=== PATIENT | male | born 1985 | race Caucasian/White ===

== ENCOUNTER 2023-07-31 13:47 | Emergency (ER) | payer OTHER ==
[2023-07-31 14:16] LABS: BASOPHILS # (AUTO) 0.1 10^3/uL (0.0-0.1); EOSINOPHILS # (AUTO) 0.2 10^3/uL (0.0-0.7); EOSINOPHILS % (AUTO) 1.8 %; HCT - HEMATOCRIT 46.9 % (42.0-52.0); HGB - HEMOGLOBIN 15.6 g/dL (14.0-18.0); LYMPHOCYTES # (AUTO) 3.3 10^3/uL (1.5-3.5); LYMPHOCYTES % (AUTO) 25.3 %; MEAN CORPUSCULAR HEMOGLOBIN 29.6 pg (27.0-31.0); MEAN CORPUSCULAR HGB CONC 33.3 g/dL (32.0-36.0); MONOCYTES # (AUTO) 0.9 10^3/uL (0.0-1.0); MONOCYTES % (AUTO) 6.7 %; NEUTROPHILS # (AUTO) 8.4 10^3/uL (1.5-6.6); NEUTROPHILS % (AUTO) 64.7 %; PLT - PLATELET COUNT 230 10^3/uL (130-450); RED BLOOD COUNT 5.27 10^6/uL (4.70-6.10); RED CELL DISTRIBUTION WIDTH 13.2 % (12.0-15.0)
[2023-07-31 14:28] VITALS: BP 130/80; O2SAT 100
[2023-07-31 14:30] LABS: ALBUMIN 4.8 g/dL (3.2-5.5); BILIRUBIN,TOTAL 0.4 mg/dL (0.2-1.0); CALCIUM 9.9 mg/dL (8.5-10.3); CREATININE 0.7 mg/dL (0.6-1.3); POTASSIUM 3.9 mmol/L (3.5-4.5); TOTAL PROTEIN 7.2 g/dL (6.4-8.9)
== END 2023-07-31 17:35 | disposition left against medical advice (07) ==
LOC: ED 13:47
DX: Z53.21 Procedure and treatment not carried out due to patient leaving prior to being seen by health care provider (principal)
CPT/HCPCS: 36415; 80053; 83690; 85025

== ENCOUNTER 2023-11-15 22:36 | Emergency (ER) | payer OTHER ==
--- NOTE | 2023-11-15 22:36 | ED Physician Documentation ---
PD HPI MALE - Stated complaint Stated Complaint: /L FLANK PX - History obtained from History obtained from: Patient, EMS - Additional information Additional information: BIBA. HPI from patient, EMS. Patient complains of rapid onset of left testicular pain at approximately 9 PM tonight while at home was seated in front of his computer. The pain radiates upwards towards his left flank and is associated with nausea and vomiting. Pain waxes and wanes without apparent exacerbating factors. He did have significant improvement en route with IV Zofran and Fentanyl. Patient says he has had one previous episode in the past of testicular pain; it is not clear if he had any diagnostic studies at that time, but was told the cause might be related to clips that were placed when he had a vasectomy undertaken in the past. He has had similar flank pain in the past, and these were attributed to renal colic (which was diagnosed with testing) Review of Systems Cardiac: reports: Reviewed and negative Respiratory: reports: Reviewed and negative GI: reports: Nausea, Vomiting. denies: Abdominal Pain : reports: Testicular pain. denies: Dysuria, Frequency, Hematuria PD PAST MEDICAL HISTORY - Past Medical History Past Medical History: Yes : Kidney stones - Present Medications Home Medications: Ambulatory Orders Medication Instructions Recorded Confirmed Pantoprazole Sodium [Protonix] 1 tab PO DAILY 11/15/23 11/15/23 Ondansetron Odt [Zofran] 4 mg TL Q6H PRN #10 tablet 11/16/23 Oxycodone HCl/Acetaminophen 1 - 2 each PO Q6H PRN #14 tablet 11/16/23 [Percocet 5-325 mg Tablet] - Allergies Allergies/Adverse Reactions: Allergies Allergy/AdvReac Type Severity Reaction Status Date / Time No Known Drug Allergies Allergy Verified 11/15/23 22:46 PD ED PE NORMAL - Vitals Vital signs reviewed: Yes - General General: Alert and oriented X 3, No acute distress, Well developed/nourished - Cardiac Cardiac: RRR, No murmur - Respiratory Respiratory: No respiratory distress, Clear bilaterally - Abdomen Abdomen: Soft, Non tender, Non distended - Back Back: No CVA TTP - Derm Derm: Normal color, Warm and dry PD ED PE EXPANDED - Male Male : Normal Exam, Testes descended anny, Normal lie/cremastaric. No: Tenderness Results - Vitals Vitals: Vital Signs - 24 hr 11/15/23 11/16/23 22:42 01:22 Temperature 36.6 C Heart Rate 89 84 Respiratory 20 16 Rate Blood Pressure 143/95 H 117/89 H O2 Saturation 95 99 Oxygen O2 Source Room air - Labs Labs: Laboratory Tests 11/15/23 11/15/23 11/15/23 22:30 22:30 23:11 WBC 12.5 H RBC 4.81 Hgb 14.1 Hct 42.0 MCV 87.3 MCH 29.3 MCHC 33.6 RDW 13.1 Plt Count 220 MPV 10.1 Neut # (Auto) Not Reportable Lymph # (Auto) Not Reportable [place] # (Auto) Not Reportable Eos # (Auto) Not Reportable Baso # (Auto) Not Reportable Absolute Nucleated RBC Not Reportable Total Counted 100 Band Neuts % (Manual) 0 Abnorm Lymph % (Manual) 7 Nucleated RBC % Not Reportable Neutrophils # (Manual) 4.5 Lymphocytes # (Manual) 6.0 H Monocytes # (Manual) 1.0 Eosinophils # (Manual) 1.0 H Basophils # (Manual) 0.0 Differential Comment MANUAL DIFFERENTIAL WBC Morphology 1+ SMUDGE CELLS Platelet Estimate NORMAL (130-450,000) Platelet Morphology NORMAL APPEARANCE RBC Morph Micro Appear NORMAL APPEARANCE Sodium 138 Potassium 3.8 Chloride 103 Carbon Dioxide 27 Anion Gap 8.0 BUN 14 Creatinine 1.0 Estimated GFR (MDRD) 83 L Glucose 137 H Calcium 10.3 Total Bilirubin 0.3 AST 18 ALT 40 Alkaline Phosphatase 88 Total Protein 7.2 Albumin 4.7 Globulin 2.5 Albumin/Globulin Ratio 1.9 Lipase 29 Urine Color BROWN Urine Clarity TURBID Urine pH 8.0 H Ur Specific [place] 1.015 Urine Protein 30 H Urine Glucose (UA) NEGATIVE Urine Ketones NEGATIVE Urine Occult Blood LARGE H Urine Nitrite NEGATIVE Urine Bilirubin NEGATIVE Urine Urobilinogen 0.2 (NORMAL) Ur Leukocyte Esterase NEGATIVE Urine RBC TNTC H Urine WBC 0-3 Ur Squamous Epith Cells NONE SEEN Amorphous Sediment Moderate Urine Bacteria Rare Ur Microscopic Review INDICATED Urine Culture Comments NOT INDICATED - Rads (name of study) testicular US with doppler Relevant Findings:: Prelim report reviewed, See rad report CT A/P without contrast Relevant Findings:: Prelim report reviewed, See rad report PD Medical Decision Making - ED course Complexity details: reviewed results, re-evaluated patient, considered differential, d/w patient ED course: Shortly after my H+P, patient had recurrence of severe left testicle and left flank pain, given 1mg IV dilaudid, 30mg IV toradol. No concerning findings on testicular ultrasound; there is normal blood flow to the left testicle and normal epididymis. A small left varicocele is noted which is an incidental finding. Mild leukocytosis on CBC (WBC 12.5). ER abdominal panel is unremarkable; mild hyperglycemia is an incidental finding (137). Urinalysis has TNTC RBC/hpf, but no other abnormalities including no WBC nor nitrites. CT of the abdomen and pelvis without contrast demonstrates a 7 mm left ureteral calculus with proximal left hydroureter and mild hydronephrosis. Results discussed with patient, return precautions reviewed. He is provided with a take-home pack of ondansetron as well as Percocet. I have electronically prescribed both these medications to his pharmacy of choice. Just prior to being discharged, patient had a recurrence of his pain and thus was given another 1 mg IV Dilaudid. This again achieved rapid and complete relief of his pain. I advised him to contact his PCP for reevaluation and possible referral to urology. Note that patient was not given Flomax nor prescription for Flomax, as he says he has plenty of this prescription still left from his most recent incident involving kidney stone (which was just a few months ago). I advised him to take a dose of the Flomax as soon as he gets home, and to take the Flomax once per day for 10 days. Departure - Departure Disposition: 01 Home, Self Care Clinical Impression: Renal colic on left side Condition: Good Instructions: ED Stone Renal W Colic Prescriptions: Oxycodone HCl/Acetaminophen [Percocet 5-325 mg Tablet] 1 - 2 each PO Q6H PRN #14 tablet PRN Reason: pain Ondansetron Odt [Zofran] 4 mg TL Q6H PRN #10 tablet PRN Reason: Nausea / Vomiting Comments: There were no concerning findings on your blood tests. The urinalysis did reveal blood in the urine but no evidence of urinary tract infection; blood in the urine is typical with renal colic (kidney stones causing symptoms). The CT scan confirms that you have a left-sided kidney stone lodged in your ureter (the conduit from the kidney to the bladder; kidney stones cause symptoms when they get stuck in the ureter as yours has). As we discussed, you should take a dose of your Flomax as soon as you get home, and then once per day for the next 10 days. I have electronically submitted prescriptions for Percocet (narcotic/opiate pain medication) and ondansetron (antinausea medication) to the [facility] pharmacy in [place]. Follow-up with your urologist, next available appointment, for reevaluation. I am prescribing a short course of narcotic pain medication for you. These are potentially dangerous and addictive medications that should be used carefully. These medications may constipate you. Take an uocf-ife-wdnrclq stool softener (docusate) twice daily with plenty of water while taking these medications. If you go 24 hours without a bowel movement, take aorq-mia-fjwebyx miralax, per package instructions. Do not drink or drive while taking these medications. If you received narcotic or sedating medications while in the emergency department, do not drive for 24 hours. Store this medication in a safe, secure place and out of reach of children. It is a violation of federal law to give or sell this medication to another person or to use in a manner other than prescribed. The ED will not refill narcotic prescriptions, including prescriptions lost or stolen. To dispose of unwanted medications: 1. [facility] at [address] in [place] has a medication drop box. They accept prescription medications (in pill form) Monday through Monday 9:00 a.m. to 5:00 p.m. 2. The [facility] accepts prescription medications (in pill form only) for disposal year round. Call for more information. 3. Contact the [facility] for the next [facility] sponsored prescription drug collection event. , [phone], or [phone]; Forms: PCP List Discharge Date/Time: 11/16/23 01:25
[2023-11-15 22:43] LABS: EOSINOPHILS % (AUTO) 3.4 %; HGB - HEMOGLOBIN 14.1 g/dL (14.0-18.0); LYMPHOCYTES % (AUTO) 44.5 %; MEAN CORPUSCULAR HEMOGLOBIN 29.3 pg (27.0-31.0); MEAN CORPUSCULAR HGB CONC 33.6 g/dL (32.0-36.0); MEAN CORPUSCULAR VOLUME 87.3 fL (80.0-94.0); MEAN PLATELET VOLUME 10.1 fL (7.4-11.4); MONOCYTES % (AUTO) 9.1 %; NEUTROPHILS % (AUTO) 41.7 %; PLT - PLATELET COUNT 220 10^3/uL (130-450); RED BLOOD COUNT 4.81 10^6/uL (4.70-6.10); RED CELL DISTRIBUTION WIDTH 13.1 % (12.0-15.0); WHITE BLOOD COUNT 12.5 x10^3/uL (4.8-10.8)
[2023-11-15 22:51] LABS: BAND NEUTROPHILS % (MANUAL) 0 %
[2023-11-15] MEDS ORDERED: HYDROmorphone 1 MG/ML CARPUJECT ONE (22:59)
[2023-11-15] MEDS ORDERED: KETOROLAC 30 MG/ML VIAL ONE (22:59)
[2023-11-15] MEDS: KETOROLAC 30 MG/ML VIAL IVP STA (23:00)
[2023-11-15] MEDS: HYDROmorphone 1 MG/ML CARPUJECT IVP STA (23:00)
[2023-11-15 23:02] LABS: ALBUMIN 4.7 g/dL (3.2-5.5); ALBUMIN/GLOBULIN RATIO 1.9 (1.0-2.2); BILIRUBIN,TOTAL 0.3 mg/dL (0.2-1.0); CALCIUM 10.3 mg/dL (8.5-10.3); POTASSIUM 3.8 mmol/L (3.5-4.5); TOTAL PROTEIN 7.2 g/dL (6.4-8.9)
[2023-11-15 23:10] LABS: ABNORMAL LYMPHS % (MANUAL) 7 %; LYMPHOCYTES % (MANUAL) 41 %; NEUTROPHILS # (MANUAL) 4.5 10^3/uL (1.5-6.6)
[2023-11-15 23:11] LABS: DIFFERENTIAL COMMENT MANUAL DIFFERENTIAL; PLATELET ESTIMATE, MANUAL NORMAL (130-450,000) (NORMAL); PLATELET MORPHOLOGY NORMAL APPEARANCE (NORMAL); RBC MORPHOLOGY (MULTIPLE) NORMAL APPEARANCE (NORMAL); WBC MORPHOLOGY (MULTIPLE) 1+ SMUDGE CELLS (NORMAL)
[2023-11-15 23:37] LABS: BILIRUBIN,URINE NEGATIVE (NEGATIVE); GLUCOSE, URINE (UA) NEGATIVE (NEGATIVE); KETONES,URINE (UA) NEGATIVE (NEGATIVE); LEUKOCYTE ESTERASE, URINE NEGATIVE (NEGATIVE); NITRITE,URINE NEGATIVE (NEGATIVE); OCCULT BLOOD,URINE LARGE (NEGATIVE); PROTEIN,URINE 30 mg/dL (NEGATIVE); UROBILINOGEN,URINE 0.2 (NORMAL) E.U./dL (NORMAL)
[2023-11-15 23:41] LABS: CLARITY,URINE TURBID (CLEAR)
[2023-11-15 23:42] LABS: AMORPHOUS SEDIMENT,UR Moderate /LPF; BACTERIA,URINE Rare /HPF (None Seen); RBC,URINE TNTC /HPF (0-5); SQUAMOUS EPITHELIAL CELL,UR NONE SEEN (<= Few); WBC,URINE 0-3 /HPF (0-3)
--- NOTE | 2023-11-16 01:02 | Ultrasound Report ---
PROCEDURE: Testicle w/Doppler INDICATIONS: left testicular pain TECHNIQUE: Real-time scanning was performed of the scrotum and testicles, with image documentation. Color and p ulse Doppler interrogation was performed of both testicles. COMPARISON: None. FINDINGS: Right: Testicle is normal in size at 3.6 x 2.0 x 2.8 cm, and homogenous in echotexture. Epididymis is normal in overall size and morphology. No hydrocele. No varicoceles. Overlying scrotal skin is n ormal in thickness. Left: Testicle is normal in size at 3.5 x 1.7 x 3.1 cm. there is an incidental 3 mm coarse calcifica tion within the testicle. The echotexture is otherwise homogeneous. Epididymis is normal in overall s ize and morphology. No hydrocele. Small varicoceles. Overlying scrotal skin is normal in thickness. Doppler: Color and pulse Doppler demonstrate normal and symmetric arterial flow in both testicles. IMPRESSION: Normal left testicular morphology and blood flow. Normal epididymides. Small left varicocele. Reviewed by: Briana Marie MD on 11/16/2023 1:00 AM PDT Approved by: Briana Marie MD on 11/16/2023 1:00 AM PDT Station ID: [id number]
--- NOTE | 2023-11-16 01:06 | CT Report ---
PROCEDURE: Abdomen/Pelvis WO INDICATIONS: left flank pain, hematuria TECHNIQUE: A CT scan of the abdomen and pelvis was performed without the use of intravenous contrast. Images we re recorded and evaluated at appropriate window settings. Reformats: coronal and sagittal. For radiat ion dose reduction, the following was used: automated exposure control, adjustment of mA and/or kV ac cording to patient size. COMPARISON: None. FINDINGS: Image quality: Diagnostic. Lower chest: Unremarkable. Liver: Mild hepatomegaly and moderate hepatic steatosis. Relative sparing of the gallbladder fossa. N o contour deforming mass. Gallbladder and biliary tree: No radiopaque stones or wall thickening. No biliary dilation. Spleen: No splenomegaly. Small splenule at the hilum. Pancreas: No pancreatic ductal dilation. Adrenals: No adrenal nodule. Kidneys and ureters: Mild left hydronephrosis and trace perinephric inflammation. Mild left hydrouret er to the level of the pelvic inlet. There is a 0.7 x 0.5 cm calcification in the ureter with Hounsfi eld units of 1200. Distally the ureter is decompressed. There are a few nonobstructing small calcific ations in the right kidney. No right hydronephrosis, hydroureter, or right ureterolithiasis. Stomach, bowel and peritoneum: The stomach contains ingested material. Normal small bowel loops. Norm al appendix and colon. No free fluid or free air. Lymph nodes: No central or retroperitoneal adenopathy. Vessels: Normal caliber abdominal aorta, IVC, and portal vein. PELVIS Reproductive organs: Unremarkable. Bladder: No wall thickness, accounting for underdistention. Pelvic lymph nodes: No pelvic adenopathy by size criteria. Bones: No aggressive osseous abnormality. Other: No significant ventral or inguinal hernia. IMPRESSION: 7 mm obstructing stone in the left mid to distal ureter causing mild left hydroureteronephrosis. A few retained right intrarenal calculi are nonobstructing. Mild hepatomegaly. Moderate hepatic steatosis. Reviewed by: Briana Marie MD on 11/16/2023 1:04 AM PDT Approved by: Briana Marie MD on 11/16/2023 1:04 AM PDT Station ID: [id number]
[2023-11-16] MEDS: oxyCODONE/ACET 5/325 Prepack 4 PO STA (01:07)
[2023-11-16] MEDS: ONDANSETRON ODT 4 MG Prepack 2 TL PRN (01:07)
[2023-11-16] MEDS: HYDROmorphone 1 MG/ML CARPUJECT IVP STA (01:13)
[2023-11-16 01:33] VITALS: BP 117/89; O2SAT 99
== END 2023-11-16 01:25 | disposition home or self-care (01) ==
LOC: EDUNIT# → ED 22:36
DX: N13.2 Hydronephrosis with renal and ureteral calculous obstruction (principal)
CPT/HCPCS: 36415; 74176; 76870; 80053; 81001; 83690; 85025; 93975; 96374; 96376; 99284; A9270; J1170; 81003; 87086